=== PATIENT | female | born 1970 | race Caucasian/White ===

== ENCOUNTER 2017-01-25 07:38 | Emergency (ER) | payer BC ==
[2017-01-25] MEDS ORDERED: KETOROLAC 30 MG/1 ML SDV IM ONE (08:07)
[2017-01-25] MEDS ORDERED: CYCLOBENZAPRINE 10 MG TAB PO ONE (08:08)
--- NOTE | 2017-01-25 08:13 | UCPHY ---
H & P Time Seen by Provider: 01/25/17 07:56 Patient Type: New HPI/ROS: HPI Left lower back pain. 46-year-old female by private vehicle with her . This patient reports that since this morning she has had left-sided lower back pain which radiates slightly into the left buttock. She reports that she noticed a slight twinge when she was walking yesterday in this area but went to bed feeling all right. 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 No fever. No history of malignancy. No abdominal pain. No bowel or bladder incontinence. No loss of sensation or weakness in her lower extremities. No history of traumatic event. No other red flags. ROS: Constitutional: No fever, no chills. No weakness. Respiratory: No cough. No shortness of breath. Cardiac: No chest pain, no palpitations. Gastrointestinal: No abdominal pain, no vomiting, no diarrhea. Genitourinary: No hematuria. No dysuria or increased frequency with urination. Musculoskeletal: As above. No neck pain. No myalgias or arthralgias. Skin: No rashes. Neurological: No headache. No focal weakness or altered sensation. Past medical history: No past medical history. Social history: Nonsmoker. Here with her . Physical Exam: General Appearance: Alert, no distress. This patient is responding to questions appropriately and in full sentences. This patient appears well- hydrated and well-nourished. Eyes: Pupils equal and round no pallor or injection. No lid edema, erythema or injection. Back exam: She does have some vague and mild tenderness on palpation over the left sacroiliac joint. No soft tissue changes, specifically no swelling, no erythema, no ecchymosis or warmth. She has no midline thoracic, lumbar, sacral tenderness on palpation. She has a negative same side and cross side straight leg raise test. She is neurologically intact in all myotomes in dermatomes of the bilateral lower extremities. No left-sided CVA tenderness on palpation. Gastrointestinal: Abdomen is soft and nontender, no masses, bowel sounds normal. No focal tenderness at McBurney's point. No Cardenas sign. Neurological: Motor sensory function is grossly intact. Cranial nerves are normal. Gait is normal. Skin: Warm and dry, no rashes. Extremities: All joints range without pain or impingement. Psychiatric: No agitation. No depression. Database: EKG: Imaging: Procedures: Emergency department course: Medication allergy history reviewed. No contraindications to NSAIDs. No history of renal dysfunction. Patient will be given 60 mg of IM Toradol and 10 mg of oral Flexeril. Urine will be checked. Kidney stone unlikely. Her presentation is consistent with a musculoskeletal etiology, likely sacroiliac strain. 8:30 a.m., patient re-evaluated. Doing much better at this time. States her pain is much improved. He is up and ambulatory without significant difficulty. Repeat neurologic Assessment is nonfocal. Results of urinalysis discussed with her and her . Plan will be to treat her with a short course of high -dose NSAIDs and Flexeril over the next 2-3 days. She is to follow up with her primary care physician within that time for re-evaluation. Return to Urgent Care/emergency department precautions discussed with her in detail. All of her questions were answered. She was discharged from the emergency department in good condition with her who is driving. Differential Diagnosis: The differential diagnosis on this patient includes but is not limited to sacroiliac strain. Epidural compression syndrome, cauda equina syndrome, kidney stone, pyelonephritis, malignancy, AAA, traumatic spinal injury unlikely. This represents a partial list of diagnoses considered. These considerations are based on history, physical exam, past history, reassessment and diagnostic testing. Smoking Status: Never smoked Constitutional: Initial Vital Signs Temperature (C) 36.5 C 01/25/17 07:49 Heart Rate 98 01/25/17 07:49 Respiratory Rate 16 01/25/17 07:49 Blood Pressure 116/86 H 01/25/17 07:49 O2 Sat (%) 98 01/25/17 07:49 O2 Delivery Mode Room Air Allergies/Adverse Reactions: paracetamol Allergy (Uncoded 01/25/17 07:49) Home Medications: Medication Instructions Recorded Cyclobenzaprine [Flexeril 10 MG 10 mg PO TID #9 tab 01/25/17 (*)] Departure - Departure Disposition: Home, Routine, Self-Care Clinical Impression: Pain in lower back Condition: Good Instructions: Acute Low Back Pain (ED) Additional Instructions: Read and follow provided instructions. Follow-up with your primary care physician within 2-3 days for re-evaluation as discussed. Take medication as prescribed. Start taking ibuprofen this evening after 6:00 p.m. Ibuprofen dosin mg every 6 hours with meals for the next 3 days only. Return to the emergency department for worsening or uncontrolled pain, loss of control of your bowel or bladder, loss of sensation or weakness in lower extremities, fever or other serious concerns. Referrals: NONE *PRIMARY CARE P,. [Primary Care Provider] - As per Instructions Prescriptions: Cyclobenzaprine [Flexeril 10 MG (*)] 10 mg PO TID #9 tab - PQRS PQRS Measurement: Not applicable.
[2017-01-25 08:45] LABS: COLOR YELLOW; LEUKOCYTE ESTERASE,URINE NEGATIVE (NEGATIVE); NITRITE,URINE NEGATIVE (NEGATIVE)
[2017-01-25 09:01] LABS: BACTERIA TRACE /hpf (NONE SEEN); RBC,URINE 0-1 /hpf (0-3); WBC,URINE 0-1 /hpf (0-3)
[2017-01-25 09:34] VITALS: BP 105/76; PULSE 67; RESP 18; TEMP 97.5; O2SAT 97
== END 2017-01-25 09:34 | disposition home or self-care (01) ==
LOC: CED 07:38
DX: M54.5 Low back pain (principal)
CPT/HCPCS: 81003-PO; 81015-PO; 96372-PO; G0463-PO; J1885